=== PATIENT | male | born 1995 | race Caucasian/White ===

== ENCOUNTER 2024-08-29 10:01 | Emergency (ER) | payer OTHER, SELFPAY ==
--- NOTE | ~2024-08-29 | XR_ITS ---
EXAMINATION: XR chest 2V DATE: 08/29/2024 10:57 INDICATION: Chest pain TECHNIQUE: PA and lateral views of the chest were obtained. COMPARISON: None FINDINGS: The lungs are clear with no focal airspace opacities, pulmonary edema, pleural effusion or pneumothor ax. The cardiomediastinal silhouette is normal. Visualized bones and soft tissues are unremarkable. IMPRESSION: 1. No acute cardiopulmonary disease. Reviewed, dictated and finalized at location B.
[2024-08-29 10:04] VITALS: BP 122/84; PULSE 112; RESP 18; O2SAT 100
--- NOTE | 2024-08-29 10:12 | ECG_ITS ---
Test Date: 2024-08-29 10:15:48 Measurements Intervals [place] Rate: 99 P: 88 AR: 137 QRS: 81 QRSD: 97 T: 66 QT: 339 QTc: 435 Interpretive Statements SINUS RHYTHM DELAYED PRECORDIAL R/S TRANSITION BASELINE ARTIFACT- I, II, III, AVR, AVL, AVF, V1-V6 BORDERLINE ECG No previous ECG available for comparison Electronically Signed On 08-29-2024 10:34:15 CDT by Henry Gracia D.O.
[2024-08-29 10:37] LABS: Basophils Absolute Auto 0.1 K/mm3 (0.0-0.1); Basophils Percent Auto 1.4 % (0.2-1.2); Eosinophils Absolute Auto 0.1 K/mm3 (0-0.3); Eosinophils Percent Auto 1.4 % (0-4.4); Hematocrit 39.1 % (42.0-52.0); Hemoglobin 13.8 g/dL (14.0-18.0); Immature Granulocyte Absolute 0.04 K/mm3 (0.00-0.031); Immature Granulocyte Percent A 0.8 % (0-0.5); Lymphocytes Absolute Auto 1.85 K/mm3 (0.9-3.2); Lymphocytes Percent Auto 36.9 % (18.3-44.2); Mean Corpuscular HGB Conc 35.3 g/dl (32-36); Mean Corpuscular Hemoglobin 29.9 pg (26-34); Mean Corpuscular Volume 84.6 fl (80-100); Mean Platelet Volume 9.2 fl (7.4-10.4); Monocytes Absolute Auto 0.5 K/mm3 (0.1-0.6); Neutrophils Absolute Auto 2.5 K/mm3 (1.3-6.7); Neutrophils Percent Auto 50.5 % (45.5-73.1); Platelet Count Result 328 k/mm3 (150-375); Red Blood Count 4.62 M/mm3 (4.6-6.20)
[2024-08-29 10:48] LABS: Alanine Aminotransferase 17 U/L (6-50); Alkaline Phosphatase 61 U/L (38-126); Anion Gap 11 mmol/L (4-12); Aspartate Amino Transferase 26 U/L (17-59); Bilirubin,Total 0.8 mg/dL (0.2-1.3); Blood Urea Nitrogen 11 mg/dL (9-20); Calcium 9.9 mg/dL (8.4-10.2); Carbon Dioxide 20 mmol/L (22-30); Chloride 107 mmol/L (98-107); Estimated CRCL calculation 86 ml/min; Estimated Glomerular Filt Rate > 60; Glucose 101 mg/dL (65-110); Lipase 23 U/L (23-300); Potassium 3.7 mmol/L (3.4-5.0); Sodium 138 mmol/L (137-145); Total Protein 7.7 g/dL (6.3-8.2)
[2024-08-29 10:59] LABS: INR 1.2
[2024-08-29 11:00] LABS: Partial Thromboplastin Time 33.2 Seconds (22.3-36.8); Troponin I < 0.012 ng/mL (0.000-0.034)
[2024-08-29 12:00] VITALS: BP 130/94; PULSE 94; RESP 16; O2SAT 100
[2024-08-29 12:02] VITALS: O2SAT 100
[2024-08-29 12:04] VITALS: PULSE 88
--- OUTSIDE RECORDS SUMMARY | 2024-08-29 12:18 | XMS_ITS | Clinical Summary ---
Author Organization [facility] Address [facility] [place] [address] Care Team Providers Care Coating Machine Operator Name Role Phone Jaime Cannon MD Primary Care Provider [phone] Allergies Active Allergy Reactions Criticality Noted Date Comments Doxycycline Nausea and Vomiting 08/13/2024 Medications FLUoxetine (PROZAC) 10 MG capsule Take 1 capsule (10 mg total) by mouth daily. Active omeprazole (PRILOSEC) 20 MG capsule Take 1 capsule (20 mg total) by mouth daily. Active Encounters Date Type Department Care Team Description 08/13/2024 11:42 PM CDT - 08/14/2024 2:54 AM CDT Emergency [facility] [address] [place] [address] [place] [address] Wenceslao Romeo MD Chest Pain Discharge Disposition: Home or Self Care (Routine Discharge) 08/13/2024 Travel from Last 3 Months Social History Tobacco Use Types Packs/Day Years Used Date Smoking Tobacco: Never Smokeless Tobacco: Never Tobacco Cessation:Counseling Given: Not Answered Alcohol Use Standard Drinks/Week Comments Never 0 (1 standard drink = 0.6 oz pur e alcohol) Sex and Gender Information Value Date Recorded Sex Assigned at Male 08/14/2024 12:14 AM CDT Legal Sex Male 10:46 PM CDT Gender Identity Not on file Sexual Orientation Not on file Last Filed Vital Signs Vital Sign Reading Time Taken Comments Blood Pressure 108/76 08/14/2024 2:30 AM CDT Pulse 73 08/14/2024 2:30 AM CDT Temperature 37.4 C (99.4 F) 08/13/2024 11:47 PM CDT Respiratory Rate 11 08/14/2024 2:30 AM CDT Oxygen Saturation 100% 08/14/2024 2:30 AM CDT Inhaled Oxygen Concentration - - Weight 65.8 kg (145 lb) 08/13/2024 11:47 PM CDT Height 172.7 cm (5' 8) 08/13/2024 11:47 PM CDT Body Mass Index 22.05 08/13/2024 11:47 PM CDT Plan of Treatment Health Maintenance Due Date Last Done Comments Annual Physical 1997 HPV Vaccines (3 - Male 3-dose series) 12/16/2011 09/23/2011, 05/01/2011 Hepatitis C 01/13/2012 DTaP, Tdap and Td Vaccines (4 - Td or Tdap) 09/22/2021 09/23/2011, 12/29/2009, 09/19/1999, Additional history exists COVID-19 Vaccine ( season) 2023 Hepatitis B Vaccines Completed 1995, 1995, 1995 Meningococcal Vaccine Aged Out 04/17/2011 No ezra haily eligible based on patient's age to complete this topic Meningococcal B Vaccine Aged Out No l onger eligible based on patient's age to complete this topic Pneumococcal Vaccine: Pediatrics (0 to 5 Years) and At-Risk Patients (6 to 49 Years) Aged Out No longer eligible based on patient's age to complete this topic RSV Immunizations Under 20 Months Aged Out No longer eligible based on patient's age to complete this topic Procedures Procedure Name Priority Date/Time Associated Diagnosis Comments TROPONIN, QUANT STAT 08/14/2024 2:14 AM CDT XR CHEST PORTABLE STAT 08/14/2024 12: 53 AM CDT D-DIMER, QUANTITATIVE STAT 08/14/2024 12:05 AM CDT TROPONIN, QUANT STAT 08/14/2024 12:05 AM CDT COMPREHENSIVE METABOLIC PANEL STAT 08/14/2024 12:05 AM CDT CBC W/DIFF AUTOMATED STAT 08/14/2024 12:05 AM CDT ECG 12-LEAD Routine 08/14/2024 12:00 AM CDT from Last 3 Months Results * TROPONIN, QUANT (08/14/2024 2:14 AM CDT) Only the most recent of2 resultswithin the time period is included. TROPONIN I HIGH SENSITIVITY <4 0 - 76 ng/L 08/14/2024 2:41 AM CDT [facility] 08/14/2024 2:14 AM CDT us Wenceslao Romeo MD LABORATORY Final Result [facility] [address] [place] [address], * XR CHEST PORTABLE (08/14/2024 12:53 AM CDT) Anatomical Region Laterality Modality Chest Radiographic Summer ging 08/14/2024 1:21 AM CDT Impressions 08/14/2024 1:22 AM CDT IMPRESSION:===== 1. NO ACUTE CARDIOPULMONARY FINDINGS. Referred By: Interpreted By: Suraj Morrison MD, 08/14/2024 1:21 AM Narrative 08/14/2024 1:22 AM CDT [place] [id number] [facility] TechnologiesB[facility] [place] [address] EXAMINATION: Chest X-Ray 1 View EXAM DATE/TIME: 08/14/2024 12:53 AM REASON FOR EXAM: Chest pain and anxiety. COMPARISON: None. TECHNIQUE: Single upright frontal projection view of the chest was obtained. FINDINGS: There is no focal infiltrate or consolidative change. Heart size is within normal limits for technique. Pulmonary vasculature is within normal limits for technique. There is no large pleural effusion or pneumothorax. ===== Procedure Note Suraj Morrison MD - 06/15/2025 [facility] [address] [place] [address] EXAMINATION: Chest X-Ray 1 View EXAM DATE/TIME: 08/14/2024 12:53 AM REASON FOR EXAM: Chest pain and anxiety. COMPARISON: None. TECHNIQUE: Single upright frontal projection view of the chest wasobtained. FINDINGS: There is no focal infiltrate or consolidative change. Heart sizeis within normal limits for technique. Pulmonary vasculature is withinnormal limits for technique. There is no large pleural effusion orpneumothorax. ===== IMPRESSION:===== 1. NO ACUTE CARDIOPULMONARY FINDINGS. Referred By: Interpreted By: Suraj Morrison MD, 08/14/2024 1:21 AM Wenceslao Romeo MD GENERAL IMAGING Final Result * (ABNORMAL) COMPREHENSIVE METABOLIC PANEL (08/14/2024 12:05 AM CDT) SODIUM S/P/B 139 136 - 145 MMOL/L 08/14/2024 12:42 AM CDT [facility] POTASSIUM S/P/B 3.8 3.5 - 5.1 MMOL/L 08/14/2024 12:42 AM CDT [facility] CHLORIDE S/P/B 103 98 - 107 MMOL/L 08/14/2024 12:42 AM CDT [facility] CO2 25.5 21.0 - 32.0 MMOL/L 08/14/2024 12:42 AM CDT [facility] GLUCOSE 98 70 - 99 MG/DL 08/14/2024 12:42 AM CDT [facility] Comment: FASTING GLUCOSE 100 TO 125 MG/DL IS CONSISTENT WITH IMPAIRED FASTING GLUCOSE. FASTING GLUCOSE >125 MG/DL IS CONSISTENT WITH DIABETES. RANDOM GLUCOSE >200 MG/DL WITH HYPERGLYCEMIC SYMPTOMS IS CONSISTENT WITH DIABETES. PER ADA GUIDELINES BUN 10 6 - 24 MG/DL 08/14/2024 12:42 AM CDT [facility] CREATININE S/P/B 1.16 0.70 - 1.30 MG/DL 08/14/2024 12:[address] [facility] CALCIUM S/P/B 10.2 8.4 - 10.5 MG/DL 08/14/2024 12:[address] [facility] BILIRUBIN TOTAL S/P/B 0.6 0.2 - 1.0 MG/DL 08/14/2024 12:[address] [facility] Comment: THIS ASSAY IS NOT RECOMMENDED FOR PATIENTS UNDERGOING TREATMENT WITH ELTROMBOPAG DUE TO THE POTENTIAL FOR FALSELY ELEVATED RESULTS. ALKALINE PHOSPHATASE S/P/B 66 45 - 115 U/L 08/14/2024 12:[address] [facility] AST 14(L) 15 - 37 U/L 08/14/2024 12:[address] [facility] ALT 18 16 - 63 U/L 08/14/2024 12:[address] [facility] TOTAL PROTEIN S/P/B 7.8 6.4 - 8.2 G/DL 08/14/2024 12:[address] [facility] ALBUMIN S/P/B 4.9 3.4 - 5.0 G/DL 08/14/2024 12:[address] [facility] ANION GAP 10.5 5.0 - 15.0 MMOL/L 08/14/2024 12:[address] [facility] OSMOLALITY (CALC) 287 MOSM/KG 025 12:[address] [facility] Comment:REFERENCE RANGE NOT ESTABLISHED GFR ESTIMATE 87(L) >89 ML/MIN/1. 73 M2 08/14/2024 12:[address] [facility] GFR NOTES GFR REFERENCE S: 08/14/2024 12:[address] [facility] Comment: THE ESTIMATED GFR IS CALCULATED USING THE 2020 CKD-EPI EQUATION. THE FOLLOWING CATEGORIES FOR GRADING RENAL FUNCTION ARE RECOMMENDED BY THE INTERNATIONAL SOCIETY OF NEPHROLOGY (KDIGO 2012 CLINICAL PRACTICE GUIDELINE). G1,NORMAL OR HIGH: >89 ml/min/1.73 m2 G2,MILDLY DECREASED: 60-89 ml/min/1.73 m2 G3A,MILDLY TO MODERATELY DECREASED: 45-59 ml/min/1.73 m2 G3B,MODERATELY TO SEVERELY DECREASED: 30-44 ml/min/1.73 m2 G4,SEVERELY DECREASED: 15-29 ml/min/1.73 m2 G5,KIDNEY FAILURE: <15 ml/min/1.73 m2 08/14/2024 12:0 5 AM CDT us Wenceslao Romeo MD LABORATORY Final Result Performing Organization Address City/[facility] Co de Phone Number [facility] [address] [place] [address], * D-DIMER, QUANTITATIVE (08/14/2024 12:05 AM CDT) Pathologist [facility] D-DIMER <215 0 - 500 ng{FEU}/mL 08/14/2024 12:28 AM CDT [facility] Comment: D-Dimer values less than or equal to 500 ng/mL FEU have a negative predictive value of >95% for exclusion of deep vein thrombosis and pulmonary embolism. In patients over 50 (who tend to have higher normal baseline D-Dimer values), recent studies suggest age-adjusted D-Dimer cutoff values (calculated as: age [years] x 10 ng/mL) result in equivalent outcomes and no additional false negative findings. 08/14/2024 12:0 5 AM CDT us Wenceslao Romeo MD LABORATORY Final Result Performing Organization Address City/[facility]/ZIP Co de Phone Number [facility] [place] [address], * (ABNORMAL) CBC W/DIFF AUTOMATED (08/14/2024 12:05 AM CDT) Pathologist [facility] WBC 8.68 4.00 - 10.80 x10'3/uL 08/14/2024 12:21 AM CDT [facility] RBC 4.92 4.50 - 6.10 x10'6/uL 08/14/2024 12:21 AM CDT [facility] HGB 14.7 13.0 - 18.0 G/DL 08/14/2024 12:21 AM CDT [facility] HCT 42.0 37.0 - 52.0 % 08/14/2024 12:21 AM CDT [facility] MCV 85.4 78.0 - 100.0 FL 08/14/2024 12:21 AM CDT [facility] MCH 29.9 27.0 - 31.0 PG 08/14/2024 12:21 AM CDT [facility] MCHC 35.0 33.0 - 36.0 G/DL 08/14/2024 12:21 AM CDT [facility] RDW 12.0 11.5 - 14.5 % 08/14/2024 12:21 AM CDT [facility] PLT 289 150 - 350 x10'3/uL 08/14/2024 12:21 AM CDT [facility] MPV 9.3 7.4 - 10.4 FL 08/14/2024 12:21 AM CDT [facility] CBC COMMENT NORMAL REFERENCE RANGE NOT ESTABLISHED FOR THE PROPORTIONAL LEUKOCYTE DIFFERENTIAL. 08/14/2024 12:21 AM CDT [facility] NEUTROPHILS % 55.8 % 08/14/2024 12:21 AM CDT [facility] LYMPHOCYTES % 32.9 % 08/14/2024 12:21 AM CDT [facility] MONOCYTES % 8.4 % 08/14/2024 12:21 AM CDT [facility] EOSINOPHILS % 1.8 % 08/14/2024 12:21 AM CDT [facility] BASOPHILS % 0.6 % 08/14/2024 12:21 AM CDT [facility] IMMATURE GRANS % 0.5 % 08/15/19 12:21 AM CDT [facility] NRBC % 0.0 % 08/14/2024 12:21 AM CDT [facility] ABS. NEUTROPHILS 4.84 1.60 - 8.30 x10'3/uL 08/14/2024 12:21 AM CDT [facility] ABS. LYMPHOCYTES 2.86 0.80 - 4.70 x10'3/uL 08/14/2024 12:21 AM CDT [facility] ABS. MONOCYTES 0.73 0.00 - 1.50 x10'3/uL 08/14/2024 12:21 AM CDT [facility] ABS. EOSINOPHILS 0.16 0.00 - 0.40 x10'3/uL 08/14/2024 12:21 AM CDT [facility] ABS. BASOPHILS 0.05 0.00 - 0.20 x10'3/uL 08/14/2024 12:21 AM CDT [facility] ABS. IMMATURE GRANULOCYTES 0.04(H) 0.00 - 0.03 x10'3/uL 08/14/2024 12:21 AM CDT [facility] ABS. 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 [address] Test Date: 2024-08-14 Pat Name: MAZIN GUADALUPE Department: 3 Room: EXAM 1 Gender: M Stull Installer: : 1995 Requested By: WENCESLAO ROMEO Order Number: [id number] Reading MD: Karan Mirza Measurements Intervals [place] Rate: 91 P: 79 UT: 131 QRS: 94 QRSD: 89 T: 46 QT: 341 QTc: 420 Interpretive Statements SINUS RHYTHM BORDERLINE RIGHT AXIS DEVIATION us Wenceslao Romeo MD ECG ORDERABLES Final Result Performing Organization Address City/State/[facility] Co de Phone Number [facility] from Last 3 Months Insurance [employer] Care Teams Coating Machine Operator Relationship Specialty Start Date End Date Jaime Cannon MD [address] [place] [id number] PCP - General FAMILY PRACTICE 08/14/24
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
--- OUTSIDE RECORDS SUMMARY | 2024-08-29 12:19 | XMS_ITS | Clinical Summary ---
Author Organization [facility] Address [address] [place] [phone] Phone Care Team Providers Care Radio Commentator Name Role Phone Amanuel Otriz MD Primary Care Provider [phone] Allergies No known active allergies Medications PARoxetine (PAXIL) 10 MG Tablet Take 10 mg by mouth daily. Active aspirin 325 MG Tablet Take 325 mg by mouth daily. Active albuterol 108 (90 Base) MCG/ACT Aerosol SolutionIndicat ions:Cough,SOB (shortness of breath) take 2 Puffs by inhalation every 4 hours as needed for Wheezing or Cough. 8.5 g 8 Active Additional Information Patient not taking.Reported on 12/23/2018 albuterol (PROVENTIL, VENTOLIN) (2.5 MG/3ML) 0.083% Nebulizer SolnIndications :Cough,SOB (shortness of breath) 3 mL by Nebulization route every 4 hours as needed for Wheezing, Shortness of Breath or Cough. 60 Vial 8 Active Additional Information Patient not taking.Reported on 12/23/2018 ipratropium (ATROVENT) 0.02 % SolutionIndicat ions:Cough,SOB (shortness of breath) 2.5 mL by Nebulization route every 6 hours. 30 Vial 8 Active Additional Information Patient not taking.Reported on 12/23/2018 predniSONE (DELTASONE) 10 MG TabletIndicatio ns:Cough Take 1 Tab by mouth 2 times daily. 10 Tab 8 Active Additional Information Patient not taking.Reported on 12/23/2018 ondansetron (ZOFRAN ODT) 4 MG TABLET DISPERSIBLE Take 4 mg by mouth every 8 hours as needed. 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 Gender Identity Not on file Sexual Orientation Not on file Last Filed Vital Signs Vital Sign Reading Time Taken Comments Blood Pressure 118/72 12/30/2018 2:11 PM CDT Pulse 102 12/30/2018 2:11 PM CDT Temperature 36.8 C (98.2 F) 12/30/2018 2:11 PM CDT Respiratory Rate 20 12/30/2018 2:11 PM CDT Oxygen Saturation 98% 12/30/2018 2:11 PM CDT Inhaled Oxygen Concentration - - Weight 54.4 kg (120 lb) 12/23/2018 5:23 PM CDT Height 172.7 cm (5' 8) 01/20/2018 3:01 PM E LEARNING DESIGNER Body Mass Index 18.25 01/20/2018 3:01 PM E LEARNING DESIGNER Plan of Treatment Health Maintenance Due Date Last Done Comments Hepatitis C Virus (HCV) Screening 1995 Human Papillomavirus (HPV) Immunization (3 - Male 3-dose series) 12/16/2011 09/23/2011, 05/01/2011 SARS-COV-2 Immunization ( season) 2023 Influenza Immunization (Season Ended) 2024 Respiratory Syncytial Virus (RSV) Immunization (Adult) (1 - 1-dose 75+ series) 2069 Hepatitis B Immunization Completed 995, [birth year] Meningococcal Immunization (ACWY) Completed 04/17/2011 DTaP/Tdap/Td Immunization Discontinued 2011, 12/29/2009, 09/19/1999, Additional history exists TdaP Immunization Completed 09/23/2011 Pneumococcal Immunization Combined Aged Out No longer eligible based on patient's age to complete this topic Rotavirus Immunization Aged Out No lo nger eligible based on patient's age to complete this topic Insurance MEDICAID [employer] Care Teams Radio Commentator Relationship Specialty Start Date End Date Amanuel Ortiz MD [address] [place] [address] PCP - General Internal Medicine 01/20/18
--- NOTE | 2024-08-29 12:22 | ED.CHESTPAIN ---
HPI - Chest Pain General Chief Complaint: Chest Pain Stated Complaint: Chest tightness Time Seen by Provider: 08/29/24 11:59 History of Present Illness HPI narrative: 29-year-old otherwise healthy male presenting to the emergency department with signs and symptoms of panic attack. His is currently next door in labor and delivery and while she was in active labor patient felt lightheaded, paresthesias in his hands and around his mouth and chest tightness. Has a history of panic attacks and is on Prozac for this. Also history of recently diagnosed cyclic vomiting syndrome secondary to marijuana. Does endorse marijuana smoking earlier today. States his symptoms have improved upon arrival to the emergency department from L&D. No shortness of breath, nausea, vomiting, headache, vision change, back pain, abdominal pain, weakness or fatigue. No trauma or injury. Related Data Home Medications ?Medication ?Instructions ?Recorded ?Confirmed ?Last Taken ?Type fluoxetine 10 mg capsule 10 mg PO DAILY 08/29/24 08/29/24 08/29/24 History Allergies Allergy/AdvReac Type Severity Reaction Status Date / Time doxycycline AdvReac Nausea and Verified 08/29/24 11:56 Vomiting Course Vital Signs Vital signs: Vital Signs Pulse Rate 112 H 08/29/24 10:04 Respiratory Rate 18 08/29/24 10:04 Blood Pressure 122/84 08/29/24 10:04 Pulse Oximetry 100 08/29/24 10:04 Pulse Rate 88 08/29/24 12:04 Respiratory Rate 16 08/29/24 12:00 Blood Pressure 130/94 H 08/29/24 12:00 Pulse Oximetry 100 08/29/24 12:02 Oxygen Delivery Room Air 08/29/24 12:02 MDM - Chest Pain MDM Narrative Medical decision making narrative: 29-year-old otherwise healthy male presenting to the emergency department with signs and symptoms of panic attack. His is currently next door in labor and delivery and while she was in active labor patient felt lightheaded, paresthesias in his hands and around his mouth and chest tightness. Has a history of panic attacks and is on Prozac for this. Also history of recently diagnosed cyclic vomiting syndrome secondary to marijuana. Does endorse marijuana smoking earlier today. States his symptoms have improved upon arrival to the emergency department from L&D. No shortness of breath, nausea, vomiting, headache, vision change, back pain, abdominal pain, weakness or fatigue. No trauma or injury. Patient is not any acute distress, slightly tachycardic upon arrival but resolved upon repeat vital signs and sitting down in the stretcher. Normal blood pressure, heart rate, no tachypnea or hypoxia. He has an unremarkable physical examination, symptoms are consistent with panic attack likely secondary to patient's currently being in labor next door. Low suspicion organic process such as ACS given his lack of risk factors and age, possibility of electrolyte derangements from hypoventilation causing symptomatology. CBC, CMP, troponin, EKG chest x-ray ordered. Was given 0.5 mg oral Ativan. Workup shows no leukocytosis or significant anemia. Normal platelet count. Normal coagulation panel, normal electrolytes aside from mild low CO2 from hyperventilation. Normal creatinine, normal glucose, normal LFTs. Negative troponin. Normal lipase. Chest x-ray unremarkable, EKG without any ischemic evidence. Patient is safe and stable for discharge home at this time. Questions were answered he was taken back to L&D to see his . Medical Records Data Attestation: I reviewed the patient's medical records. Lab Data Attestation: I reviewed the patient's lab results. 08/29/24 10:27 08/29/24 10:27 Labs: Lab Results 08/29/24 Range/Units 10:27 WBC 5.0 (4.5-10.0) K/mm3 RBC 4.62 (4.6-6.20) M/mm3 Hgb 13.8 L (14.0-18.0) g/dL Hct 39.1 L (42.0-52.0) % MCV 84.6 (80-100) fl MCH 29.9 (26-34) pg MCHC 35.3 (32-36) g/dl RDW 12.0 (11.5-14.5) % Plt Count 328 (150-375) k/mm3 MPV 9.2 (7.4-10.4) fl Immature Gran % (Auto) 0.8 H (0-0.5) % Neut % (Auto) 50.5 (45.5-73.1) % Lymph % (Auto) 36.9 (18.3-44.2) % [place] % (Auto) 9.0 H (2.6-8.5) % Eos % (Auto) 1.4 (0-4.4) % Baso % (Auto) 1.4 H (0.2-1.2) % Lymph # (Auto) 1.85 (0.9-3.2) K/mm3 [place] # (Auto) 0.5 (0.1-0.6) K/mm3 Eos # (Auto) 0.1 (0-0.3) K/mm3 Baso # (Auto) 0.1 (0.0-0.1) K/mm3 Abs Immat Gran (auto) 0.04 H (0.00-0.031) K/mm3 Absolute Neuts (auto) 2.5 (1.3-6.7) K/mm3 Absolute Nucleated RBC 0.000 (0.0-0.012) K/mm3 Nucleated RBC % 0.0 (0.0-0.2) % PT 15.0 H (11.1-14.7) Seconds INR 1.2 APTT 33.2 (22.3-36.8) Seconds Sodium 138 (137-145) mmol/L Potassium 3.7 (3.4-5.0) mmol/L Chloride 107 (98-107) mmol/L Carbon Dioxide 20 L (22-30) mmol/L Anion Gap 11 (4-12) mmol/L BUN 11 (9-20) mg/dL Creatinine 0.93 (0.7-1.3) mg/dL Estim Creat Clear Calc 86 ml/min Estimated GFR > 60 (59 - ) Glucose 101 (65-110) mg/dL Calcium 9.9 (8.4-10.2) mg/dL Total Bilirubin 0.8 (0.2-1.3) mg/dL AST 26 (17-59) U/L ALT 17 (6-50) U/L Alkaline Phosphatase 61 (38-126) U/L Troponin I < 0.012 (0.000-0.034) ng/mL Total Protein 7.7 (6.3-8.2) g/dL Albumin 5.0 (3.5-5.1) g/dL Lipase 23 (23-300) U/L Imaging Data Attestation: I personally reviewed and interpreted this imaging study as follows: My impression: Impressions Chest X-Ray 08/29/24 11:00 IMPRESSION: 1. No acute cardiopulmonary disease. ECG Data EKG #1: Attestation: I personally reviewed and interpreted this ECG as follows: ECG completion date: 08/29/24 ECG completion time: 10:15 Prior ECG tracings: not available for review Interpretation: QTC 435, QRS 97, NC interval 137, rate of 99 beats per minute, no ST segment elevations, depressions or inversions. Final interpretation is normal sinus rhythm, no previous EKG recorded for comparison purposes. Discharge Plan Discharge Clinical Impression: Chest pain, Panic attack Patient Disposition: Home Condition: Stable Instructions: Antibiotic Form, Chest Pain (ED), Panic Attack (ED) Additional Instructions: Your laboratory studies are all reassuring without any signs of electrolyte derangements, heart issues, kidney or liver issues, lung issues. No acute concerning findings in your symptoms do sound likely could be related to a suspected panic attack but not definitive. Follow-up with regular doctor. Return with any emergent concerns. Patient Language: [place] Prescriptions: No Action fluoxetine 10 mg capsule 10 mg PO DAILY Follow-up/Referrals: UNKNOWN,DOCTOR [Primary Care Provider] - Time of Disposition: 12:27
[2024-08-29 12:25] VITALS: BP 121/95; PULSE 88; RESP 16; TEMP 37; O2SAT 100
[2024-08-29] MEDS: LORazepam (*CRX) 0.5 MG TABLET PO (12:25)
[2024-08-29 12:40] VITALS: BP 134/86; PULSE 90; RESP 18; O2SAT 100
== END 2024-08-29 12:49 | disposition home or self-care (01) ==
PROVIDERS: Emergency Medicine; Emergency Provider Student in an Organized Health Care Education/Training Program
DX: F41.0 Panic disorder [episodic paroxysmal anxiety] (principal)
CPT/HCPCS: 36415; 71046; 80053; 83690; 84484; 85025; 85610; 85730; 93005; 99284; A9270